=== PATIENT | female | born 1975 | race Caucasian/White ===

== ENCOUNTER 2024-06-25 12:20 | Emergency (ER) | payer OTHER, SELFPAY ==
[2024-06-25 12:26] VITALS: BP 194/115; PULSE 96; RESP 20; TEMP 36.6; O2SAT 100
--- NOTE | 2024-06-25 12:30 | ED.DENTAL ---
HPI - Dental/Oral General Chief complaint: Dental/Oral Stated complaint: tooth infection Time Seen by Provider: 06/25/24 12:30 Source: patient, RN notes reviewed and old records reviewed Mode of arrival: ambulatory Limitations: no limitations History of Present Illness HPI Narrative: 49-year-old female presents to the [facility] with complaints of a dental infection. States that she took leftover Keflex she had. Has not taken her blood pressure medication. Related Data Home Medications Medication Instructions Recorded Confirmed cephalexin 500 mg capsule mg 06/25/24 losartan 100 tablet 06/25/24 mg-hydrochlorothiazide 25 mg tablet sertraline 100 mg tablet mg 06/25/24 Allergies Allergy/AdvReac Type Severity Reaction Status Date / Time No Known Allergies Allergy Verified 12/17/18 12:08 Review of Systems Review of Systems: All systems reviewed & are unremarkable except as noted in HPI and below Constitutional: Constitutional: Reports no additional constitutional complaints Eyes: Eyes: Reports no additional eye complaints ENT: Reports as per HPI and Reports dental pain Cardiovascular: Cardiovascular: Reports no additional cardiovascular complaints, Denies chest pain and Denies dyspnea Respiratory: Respiratory: Reports no additional respiratory complaints, Denies chest congestion, Denies cough and Denies dyspnea Gastrointestinal: Gastrointestinal: Reports no additional gastrointestinal complaints, Denies abdominal pain, Denies nausea and Denies vomiting Musculoskeletal: Musculoskeletal: Reports no additional musculoskeletal complaints Integumentary/Breasts: Skin/Breast: Reports system reviewed and no additional complaints, except as docu Neurologic: Reports system reviewed and no additional complaints, except as documented Psychiatric: Psychiatric: Reports no additional psychiatric complaints Allergic/Immunologic: Allergic/Immunologic: Reports no additional allergic/immunologic complaints PMFSH Comments At the time of my signature, I reviewed and agree with the nursing past medical, surgical, social, and family history. There is no relevant family history pertinent to the patient complaint. Exam Const: General: cooperative, healthy appearing, comfortable, no acute distress, well developed, alert and well nourished Nutritional Appearance: well nourished Orientation/consciousness: patient oriented x3 Limitations: no limitations HENMT: Head: normal to inspection Ears: hearing grossly normal bilaterally and external ears normal Face/Nose/Sinus: Normal external nose present, Normal nares present, Normal nasal mucous membranes and turbinates present, normal facial exam and face symmetric Face and sinus: normal facial exam and face symmetric Teeth and gingiva: caries, fair dentition and gingiva abnormal edematous (Right lower) Other: Multiple caries to teeth, inflammation noted to the right lower gum area Eyes: General: appearance normal, both eyes and all related structures Alignment and Position: alignment normal Periorbital: periorbital findings normal Neck: Neck: normal visual inspection, full ROM, no lymphadenopathy and no meningeal signs Chest: Chest palpation & inspection: normal inspection of the chest Resp: Effort & Inspection: normal respiratory effort and able to speak in complete sentences Auscultation: clear to auscultation bilaterally, no crackles, no rales, no rhonchi and no wheezes Cardio: Rate: regular rate Rhythm: regular rhythm Skin: General skin exam: normal color and no rashes or lesions noted Lesions: no lesions Rashes: no rashes Trauma: no lacerations or abrasions Wounds: no wounds Neuro: General: patient oriented x3, gait normal, tone normal, moves all extremities and no meningeal signs Cranial nerves: Yes Equal, round and reactive pupils present Cognition (Neuro): normal cognition Speech: normal speech Gait exam (Neuro): Normal gait present Extrem: General: nor
== END 2024-06-25 12:52 | disposition home or self-care (01) ==
PROVIDERS: Emergency Provider Nurse Practitioner
DX: K02.9 Dental caries, unspecified (principal); K08.89 Other specified disorders of teeth and supporting structures; I10 Essential (primary) hypertension
CPT/HCPCS: 99203; G0463

== ENCOUNTER 2024-10-20 08:34 | Emergency (ER) | payer OTHER, SELFPAY ==
[2024-10-20 08:41] VITALS: BP 206/107; PULSE 90; RESP 16; TEMP 36.4; O2SAT 100
[2024-10-20 08:50] VITALS: BP 204/110
[2024-10-20 08:51] VITALS: BP 204/110
[2024-10-20 09:08] LABS: EDSTREPNEGPOS1 Negative (Negative)
--- NOTE | 2024-10-20 09:15 | ED.URI ---
HPI - URI/Sore Throat General Chief Complaint: Upper Respiratory Infection Stated Complaint: throat/sinus History of Present Illness HPI Narrative: Patient is a 49-year-old female, past medical history history significant for hypertension anxiety, presents to [facility] with to 3 day history of URI symptoms, including nasal congestion, sore throat, dry cough and headache. She denies no fevers or chills. She has no known sick contacts. She does mention that she has been taking [id number] medications but has been cautious with which she has been taking because she has been out of her antihypertensive and anxiety medication for over a month. She has an appoint with her PCP on Friday. She denies associated chest pain, focal motor weakness or paresthesias. She is not . She denies any additional associated symptoms or modifying factors. Related Data Allergies Allergy/AdvReac Type Severity Reaction Status Date / Time No Known Allergies Allergy Verified 12/17/18 12:08 Review of Systems Constitutional: Constitutional: Reports as per HPI ENT: Reports system reviewed and no additional complaints, except as documented and Reports as per HPI Respiratory: Respiratory: Reports as per HPI Exam Const: General: healthy appearing and no acute distress Nutritional Appearance: well nourished Orientation/consciousness: patient oriented x3 Limitations: no limitations HENMT: Head: normal to inspection Ears: external ears normal and TM's normal bilaterally Face and sinus: normal facial exam and sinuses nontender Teeth and gingiva: dentition normal Throat: uvula midline Other: Patient has small focal abscess ulcerations noted just anterior to the uvula on the palate. No buccal mucosal ulcerations noted. The tongue is also unremarkable. Tonsils are not swollen or visible. posterior pharyngeal injection and cobblestoning is also noted. Eyes: Conjunctivae: conjunctivae normal Pupils: Equal, round and reactive pupils present EOM: EOMs intact bilaterally Neck: Neck: normal visual inspection, no lymphadenopathy and no meningeal signs Resp: Effort & Inspection: normal respiratory effort Auscultation: clear to auscultation bilaterally Cardio: Rate: regular rate Rhythm: regular rhythm Back/Spine/Pelvis: Back: no CVA tenderness Skin: General skin exam: normal color Rashes: no rashes Wounds: no wounds Neuro: General: patient oriented x3, moves all extremities, no meningeal signs, no focal motor deficits and CN's II-XI intact bilaterally Cranial nerves: Yes Nystagmus not present Speech: normal speech Gait exam (Neuro): Normal gait present Extrem: General: normal to inspection, no clubbing, cyanosis or edema and no pedal edema Course Course Emergency Course: Patient's strep screen test is negative. Her symptoms are consistent with a viral URI, given aphthous ulcerations/dermatitis present. Will treat with a short steroid Level of Care: Express Care Visit ([id number]) Vital Signs Vital signs: Vital Signs Temperature 36.4 C L 10/20/24 08:41 Pulse Rate 90 10/20/24 08:41 Respiratory Rate 16 10/20/24 08:41 Blood Pressure 206/107 H 10/20/24 08:41 Pulse Oximetry 100 10/20/24 08:41 Oxygen Delivery Room Air 10/20/24 08:41 Temperature 36.4 C L 10/20/24 08:41 Pulse Rate 90 10/20/24 08:41 Respiratory Rate 16 10/20/24 08:41 Blood Pressure 204/110 H 10/20/24 08:51 Pulse Oximetry 100 10/20/24 08:41 Oxygen Delivery Room Air 10/20/24 08:41 MDM - URI/Sore Throat MDM Narrative Medical decision making narrative: Strep negative, will reflect her culture, patient's examination is consistent with a viral URI, will treat with short steroid course and cough suppressant, refilling her medications as aforementioned. Follow up with her PCP on Friday as scheduled Lab Data Labs: Lab Results 10/20/24 Range/Units 09:07 POC Grp A Strep Screen Negative (Negative) Discharge Plan Discharge Clinical Impression: Aphthous stomatitis Upper respiratory infection Qualifiers: URI type: unspecified URI Qualified Code(s): J06.9 - Acute upper respiratory infection, unspecified Patient Disposition: Home, Self-Care Condition: Stable Instructions: Antibiotic Form, Upper Respiratory Infection (ED), Gingivostomatitis (ED) Additional Instructions: RESUME YOUR HOME MEDICATIONS PRESCRIBED. COMPLETE STEROIDS, USE COUGH SUPPRESSANT PRESCRIBED. TYLENOL AND OR IBUPROFEN MAY ADDITIONALLY BE TAKEN FOR ADDED SYMPTOM RELIEF. PUSH FLUIDS AND REST. FOLLOW-UP WITH YOUR PRIMARY DOCTOR ON FRIDAY SCHEDULED. Prescriptions: New prednisone 20 mg tablet 40 mg PO DAILY 5 Days Qty: 10 0RF promethazine-DM 6.25-15 mg/5 mL syrup 5 ml PO Q4-6H PRN (Reason: cough) Qty: 118 0RF losartan-hydrochlorothiazide 100-25 mg tablet 1 tablet PO DAILY Qty: 14 0RF sertraline 100 mg tablet 100 mg PO DAILY Qty: 14 0RF Follow-up/Referrals: PHYSICIAN NOT ON STAFF,NONSTAFF [Primary Care Provider] - Time of Disposition: 09:32
== END 2024-10-20 09:37 | disposition home or self-care (01) ==
PROVIDERS: Emergency Provider Nurse Practitioner Family
DX: K12.0 Recurrent oral aphthae (principal); J06.9 Acute upper respiratory infection, unspecified; I10 Essential (primary) hypertension
CPT/HCPCS: 87081; 87880; 99213; G0463